=== PATIENT | male | born 1985 | race African-American/Black ===

== ENCOUNTER 2016-07-11 01:22 | Emergency (ER) | payer SELFPAY ==
[~2016-07-11] VITALS: Ht 185.4 cm; Wt 83.9 kg
[2016-07-11 01:36] VITALS: BP 116/68
== END 2016-07-11 02:37 | disposition home or self-care (01) ==
LOC: ER 01:35
DX: Z20.7 Contact with and (suspected) exposure to pediculosis, acariasis and other infestations (principal)

== ENCOUNTER 2019-03-19 13:05 | Emergency (ER) | payer MEDICAID ==
[~2019-03-19] VITALS: Ht 182.9 cm; Wt 90.7 kg
[2019-03-19 14:40] VITALS: BP 121/73
== END 2019-03-19 15:34 | disposition home or self-care (01) ==
LOC: ER 13:24
DX: L73.9 Follicular disorder, unspecified (principal)

== ENCOUNTER 2020-03-26 12:00 | Emergency (ER) | payer MEDICAID ==
[~2020-03-26] VITALS: Ht 185.4 cm; Wt 94.3 kg
[2020-03-26] MEDS ORDERED: ETOMIDATE (2MG/ML) 20ML VIAL IV ONE (13:39)
[2020-03-26 15:22] VITALS: BP 135/87
== END 2020-03-26 15:58 | disposition home or self-care (01) ==
LOC: ER 12:00
DX: S43.005A Unspecified dislocation of left shoulder joint, initial encounter (principal); W22.8XXA Striking against or struck by other objects, initial encounter; Y93.89 Activity, other specified; Y92.89 Other specified places as the place of occurrence of the external cause; Y99.8 Other external cause status
CPT/HCPCS: 73020; 73030

== ENCOUNTER 2020-04-14 12:38 | Emergency (ER) | payer MEDICAID ==
[~2020-04-14] VITALS: Ht 185.4 cm; Wt 91.2 kg
[2020-04-14 12:40] VITALS: BP 134/88
== END 2020-04-14 14:22 | disposition left against medical advice (07) ==
LOC: EDBD 12:38 → ER 12:38
DX: F10.920 Alcohol use, unspecified with intoxication, uncomplicated (principal); Z53.21 Procedure and treatment not carried out due to patient leaving prior to being seen by health care provider